=== PATIENT | female | born 1985 | race Caucasian/White ===

== ENCOUNTER 2018-07-18 19:59 | Emergency (ER) | payer OTHER ==
[~2018-07-18] VITALS: Ht 157.4 cm; Wt 54.4 kg
[~2018-07-18 19:59] MED LIST: TAGAMET300 MG PO
[2018-07-18] MEDS ORDERED: FLONASE ALLERG9.9 ML NAS (20:20)
[2018-07-18] MEDS ORDERED: OMNICEF300 MG PO (20:20)
== END 2018-07-18 20:27 ==
LOC: ED 19:59
DX: O26.891 Other specified pregnancy related conditions, first trimester (principal); J01.00 Acute maxillary sinusitis, unspecified; Z88.0 Allergy status to penicillin; Z3A.10 10 weeks gestation of pregnancy

== ENCOUNTER 2024-09-22 09:38 | Emergency (ER) | payer OTHER ==
[~2024-09-22] VITALS: Wt 54.0 kg
[~2024-09-22 09:38] MED LIST changes: +FLONASE ALLERG9.9 ML NAS; +OMNICEF300 MG PO
[2024-09-22 10:06] LABS: BILIRUBIN Negative (Negative); BLOOD Negative (Negative); CLARITY Clear (Clear); COLOR Yellow (Yellow); GLUCOSE Negative (Negative); KETONE Negative (Negative); LEUKO ESTERASE Negative (Negative); NITRITE Negative (Negative); SPECIFIC GRAVITY 1.015 (1.001-1.030); UROBILINOGEN 0.2 E.U./dl (0.0-1.0)
[2024-09-22 10:07] LABS: PH 8.5 (4.5-8.0)
[2024-09-22 10:08] LABS: BASO % 0.7 % (0.0-1.0); EOS # 0.1 10*3/uL (0.0-0.4); EOS % 2.4 % (1.0-4.0); MEAN CELL VOLUME 97.4 fl (81.0-99.0); MEAN CORPUSCULAR HGB 31.8 pg (27.0-31.0); MEAN CORPUSCULAR HGB CONC 32.6 g/dl (33.0-37.0); MEAN PLATELET VOLUME 9.1 fl (9.6-12.3); MONO # 0.5 10*3/uL (0.1-1.0); MONO % 11.8 % (3.0-9.0); NEUT # 1.9 10*3/uL (2.3-7.9); NEUT % 42.8 % (47.0-73.0); PLATELET COUNT AUTOMATED 342 10*3/uL (130-400); RED CELL DISTRI WIDTH 14.1 % (0-14.5); WHITE BLOOD COUNT 4.5 10*3/uL (4.8-10.8)
[2024-09-22 10:13] LABS: URINE AMPHETAMINES Negative (1000ng/ml); URINE BARBITURATES Negative (200ng/ml); URINE BENZODIAZEPINES Negative (200ng/ml); URINE CANNABINOIDS (THC) Positive (50ng/ml); URINE COCAINE Negative (300ng/ml); URINE METHADONE Negative (300ng/ml); URINE OPIATES Negative (300ng/ml); URINE PHENCYCLIDINE Negative (25ng/ml)
[2024-09-22] MEDS ORDERED: LORazepam 0.5 MG TAB PO ONE (10:15)
[2024-09-22] MEDS ORDERED: ACETAMINOPHEN 325 MG TAB PO ONE (10:15)
[2024-09-22 10:28] LABS: BUN 9 mg/dl (9-23); CHLORIDE 110 mmol/L (98-107); POTASSIUM 4.5 mmol/L (3.4-5.1)
== END 2024-09-22 12:33 | disposition home or self-care (01) ==
LOC: ED 09:38
PROVIDERS: Internal Medicine
DX: F41.9 Anxiety disorder, unspecified (principal); R07.89 Other chest pain; R11.0 Nausea; Z88.0 Allergy status to penicillin; Z87.891 Personal history of nicotine dependence; Z79.899 Other long term (current) drug therapy

== ENCOUNTER 2025-01-28 14:09 | Emergency (ER) | payer OTHER ==
[~2025-01-28] VITALS: Ht 157.4 cm; Wt 54.4 kg
[2025-01-28] MEDS ORDERED: IBUPROFEN 800 MG TAB PO ONE (14:40)
[2025-01-28 14:53] LABS: BILIRUBIN Negative (Negative); BLOOD 1+ (Negative); CLARITY Turbid (Clear); COLOR Yellow (Yellow); GLUCOSE Negative (Negative); KETONE Negative (Negative); LEUKO ESTERASE Trace (Negative); NITRITE Negative (Negative)
[2025-01-28 14:54] LABS: PH 8.5 (4.5-8.0)
[2025-01-28 15:26] LABS: BASO % 0.7 % (0.0-1.0); EOS # 0.1 10*3/uL (0.0-0.4); HEMATOCRIT 41.3 % (37.0-47.0); MEAN CELL VOLUME 95.2 fl (81.0-99.0); MEAN CORPUSCULAR HGB 31.3 pg (27.0-31.0); MEAN CORPUSCULAR HGB CONC 32.9 g/dl (33.0-37.0); MEAN PLATELET VOLUME 9.2 fl (9.6-12.3); MONO # 0.4 10*3/uL (0.1-1.0); MONO % 7.8 % (3.0-9.0); NEUT # 3.1 10*3/uL (2.3-7.9); NEUT % 54.4 % (47.0-73.0); PLATELET COUNT AUTOMATED 310 10*3/uL (130-400); RED BLOOD COUNT 4.34 10*6/uL (4.10-5.10); RED CELL DISTRI WIDTH 13.2 % (0-14.5); WHITE BLOOD COUNT 5.6 10*3/uL (4.8-10.8)
[2025-01-28] MEDS ORDERED: IOHEXOL 300 MG/ML 100 ML VIAL IV ONE (15:30)
[2025-01-28 15:37] LABS: BACTERIA 1+; MUCOUS 1+
[2025-01-28 15:47] LABS: ALKALINE PHOSPHATASE 62 U/L (46-116); BUN 10 mg/dl (9-23); CHLORIDE 108 mmol/L (98-107); POTASSIUM 3.6 mmol/L (3.4-5.1); SGPT/ALT 10 U/L (5-49); TOTAL PROTEIN 6.6 gm/dL (6.0-8.0)
[2025-01-28] MEDS ORDERED: ACETAMINOPHEN 325 MG TAB PO ONE (17:20)
[2025-01-28] MEDS ORDERED: Ondansetron Hydrochloride 4 MG TAB PO ONE (17:20)
== END 2025-01-28 18:23 | disposition home or self-care (01) ==
LOC: ED 14:09
PROVIDERS: Physician Assistant Medical
DX: N83.201 Unspecified ovarian cyst, right side (principal); R11.0 Nausea; I10 Essential (primary) hypertension; Z88.0 Allergy status to penicillin; Z88.5 Allergy status to narcotic agent; Z90.711 Acquired absence of uterus with remaining cervical stump